=== PATIENT | female | born 1950 | race Caucasian/White ===

== ENCOUNTER 2018-01-21 16:27 | Emergency (ER) | payer OTHER ==
--- NOTE | 2018-01-21 16:47 | PDOC ---
History of Present Illness - General History Source: Patient, EMS Exam Limitations: Dementia - History of Present Illness Initial Comments: The patient is a 67 year old female with a significant past medical history of severe dementia, migraines,schizophrenia, major depressive disorder, HLD, HTN, hyperthyroidism, and chronic constipation who was brought in by EMS from [facility] for evaluation for refusal to eat 4 days. The patient is a poor historian. As per EMS, the patient has not been eating and being compliant with taking medicine. Allergies: NKA Past surgical history: No record. Social history: No reported cigarette, alcohol, or drug use. <Annemarie Rodriguez - Last Filed: 01/21/18 18:50> <Nini Beth - Last Filed: 01/22/18 01:51> - General Stated Complaint: AMS Time Seen by Provider: 01/21/18 16:39 Past History <Annemarie Rodriguez - Last Filed: 01/21/18 18:50> <Nini Beth - Last Filed: 01/22/18 01:51> - Past Medical History Allergies/Adverse Reactions: Allergies Allergy/AdvReac Type Severity Reaction Status Date / Time No Known Allergies Allergy Verified 01/21/18 16:52 Review of Systems - Review of Systems Able to Perform ROS?: No (Altered mental status.) Comments:: Limited due to altered mental status. <Annemarie Rodriguez - Last Filed: 01/21/18 18:50> *Physical Exam - Vital Signs Last Vital Signs Temp Pulse Resp BP Pulse Ox 100.1 F H 89 18 179/79 93 L 01/21/18 17:29 01/21/18 17:29 01/21/18 16:47 01/21/18 16:47 01/21/18 17:29 - Physical Exam Comments: GENERAL: Well developed, well nourished. Awake and alert. HEENT: (+)Dry mucous membranes. Normocephalic, atraumatic. PERRLA, EOMI. No conjunctival pallor. Sclera are non- icteric. Oropharynx is clear. NECK: Supple. Full ROM. No JVD. Carotid pulses 2+ and symmetric, without bruits. No thyromegaly. No lymphadenopathy. CARDIOVASCULAR: Regular rate and rhythm. No murmurs, rubs, or gallops. Distal pulses are 2+ and symmetric. PULMONARY: No evidence of respiratory distress. Lungs clear to auscultation bilaterally. No wheezing, rales or rhonchi. ABDOMINAL: Soft. Non-tender. Non-distended. No rebound or guarding. No organomegaly. Normoactive bowel sounds. MUSCULOSKELETAL Normal range of motion at all joints. No bony deformities or tenderness. No CVA tenderness. EXTREMITIES: No cyanosis. No clubbing. No edema. No calf tenderness. SKIN: Warm and very dry. Normal capillary refill. No rashes. No jaundice. NEUROLOGICAL: Alert, awake, appropriate. Cranial nerves 2-12 intact. No deficits to light touch and temperature in face, upper extremities and lower extremities. No motor deficits in the in face, upper extremities and lower extremities. Normoreflexic in the upper and lower extremities. PSYCHIATRIC: Cooperative. Good eye contact. Appropriate mood and affect. <Annemarie Rodriguez - Last Filed: 01/21/18 18:50> ED Treatment Course - LABORATORY CBC & Chemistry Diagram: 01/21/18 16:47 01/21/18 17:29 - ADDITIONAL ORDERS Additional order review: Laboratory Results 01/21/18 01/21/18 01/21/18 17:29 17:15 16:47 Sodium 144 Potassium 3.5 Chloride 112 H Carbon Dioxide 24 Anion Gap 8 BUN 12 Creatinine 0.5 L Creat Clearance w eGFR > 60 Random Glucose 90 Calcium 8.1 L Total Bilirubin 0.4 AST 20 ALT 25 Alkaline Phosphatase 110 Creatine Kinase 183 Creatine Kinase Index 0.5 CK-MB (CK-2) 1.031 Troponin I < 0.02 Total Protein 6.4 Albumin 2.5 L Urine Color Padmini Urine Appearance Turbid Urine pH 5.0 Ur Specific Parker 1.018 Urine Protein Negative Urine Glucose (UA) Negative Urine Ketones 1+ H Urine Blood 1+ H Urine Nitrite Negative Urine Bilirubin Negative Urine Urobilinogen 2.0 H Ur Leukocyte Esterase 2+ H Urine WBC (Auto) 24 Urine RBC (Auto) 13 Ur Epithelial Cells Many Urine Bacteria Many Urine Mucus Many Blood Type A POSITIVE Antibody Screen Negative 01/21/18 16:47 RBC 4.11 MCV 90.8 MCHC 35.0 RDW 13.6 MPV 8.2 Neutrophils % 70.2 Lymphocytes % 18.3 Monocytes % 9.7 Eosinophils % 0.9 Basophils % 0.9 - Medications Given in the ED: ED Medications Discontinued Medications Generic Name Dose Route Start Last Admin Trade Name Chito PRN Reason Stop Dose Admin Sodium Chloride 1,000 mls @ 1,000 mls/hr 01/21/18 16:52 01/21/18 17:28 Normal Saline - IV 01/21/18 17:51 1,000 mls/hr ASDIR STA Administration <Annemarie Rodriguez - Last Filed: 01/21/18 18:50> - LABORATORY CBC & Chemistry Diagram: 01/21/18 16:47 01/21/18 17:29 <Nini Beth - Last Filed: 01/22/18 01:51> Medical Decision Making - Medical Decision Making 01/22/18 01:48 67-year-old female brought in from the assisted for failure to thrive. The assisted notes states that the patient has refused to eat or take her medications for the past 4 days Past medical history significant for dementia, schizophrenia, chronic constipation. The patient was afebrile. CT of the head did not show any acute intracranial pathology UA showed some WBCs, but no significant number Clinically, the patient had a vaginal yeast infection and was given Diflucan CBC unremarkable. EKG does not show any ischemia I spoke with the nurse Fatmata on the second floor at [facility] and told her that the patient wouldn't need Monistat vaginal suppositories for week and also should be put on Levaquin for a short time for UTI. Patient is not febrile. Patient does not have any elevated white count will be discharged back to her facility with instructions to continue her medications for her vaginal candidiasis and UTI <Nini Beth - Last Filed: 01/22/18 01:51> *DC/Admit/Observation/Transfer - Attestations Scribe Attestion: Documentation prepared by Annemarie Rodriguez, acting as registered medical transcriptionist for Nini Beth MD. <Annemarie Rodriguez - Last Filed: 01/21/18 18:50> <Nini Beth - Last Filed: 01/22/18 01:51> Diagnosis at time of Disposition: Vagina, candidiasis UTI (urinary tract infection) Qualifiers: Urinary tract infection type: site unspecified Hematuria presence: without hematuria Qualified Code(s): N39.0 - Urinary tract infection, site not specified - Discharge Dispostion Disposition: HOME Condition at time of disposition: Stable - Referrals Referrals: Michaelle Lyons MD [Primary Care Provider] - - Patient Instructions Printed Discharge Instructions: DI for Vaginal Yeast Infection, DI for Urinary Tract Infection (UTI) Additional Instructions: This patient needs one week of MONISTAT VAGINAL SUPPOSITORY for her yeast infection Please give LEVAQUIN 750 mg daily for UTI for one week
[2018-01-21] MEDS ORDERED: SODIUM CHLORIDE 1,000 ML IV STA (16:52)
[2018-01-21 17:10] LABS: BASO % 0.9 % (0-2.0); EOS % 0.9 % (0-4.5); HEMATOCRIT 37.3 % (32.4-45.2); HEMOGLOBIN 13.1 GM/dL (10.7-15.3); LYMPH % 18.3 % (8-40); MCH 31.8 pg (25.7-33.7); MEAN CELL VOLUME 90.8 fl (80-96); MEAN PLT VOLUME 8.2 fl (7.5-11.1); MONO % 9.7 % (3.8-10.2); NEUT % 70.2 % (42.8-82.8); PLATELET COUNT 222 K/MM3 (134-434); RBC 4.11 M/mm3 (3.60-5.2); RDW 13.6 % (11.6-15.6); WHITE BLOOD COUNT 7.3 K/mm3 (4.0-10.0)
[2018-01-21 17:13] VITALS: BP 179/79; BMI 40.5
[2018-01-21 17:29] VITALS: PULSE 89; TEMP 100.1
[2018-01-21 17:33] LABS: URINE APPEARANCE TURBID; URINE BILIRUBIN NEGATIVE (<2.0 mg/dL); URINE BLOOD 1+ (NEGATIVE); URINE COLOR AMBER; URINE GLUCOSE (UA) NEGATIVE (NEGATIVE); URINE KETONE 1+ (NEGATIVE); URINE NITRITE NEGATIVE (NEGATIVE); URINE PROTEIN NEGATIVE (NEGATIVE)
[2018-01-21 17:36] LABS: URINE LEUK ESTERASE 2+ (NEGATIVE)
[2018-01-21 17:41] LABS: EPI CELLS MANY /HPF (FEW); URINE BACTERIA MANY /hpf (NONE SEEN); URINE MUCUS MANY
[2018-01-21 18:01] LABS: ALBUMIN 2.5 g/dl (3.4-5.0); ANION GAP 8 (8-16); BILIRUBIN,TOTAL 0.4 mg/dL (0.2-1.0); BLOOD UREA NITROGEN 12 mg/dL (7-18); CALCIUM 8.1 mg/dL (8.5-10.1); CHLORIDE 112 mmol/L (98-107); CO2 24 mmol/L (21-32); CREATININE 0.5 mg/dL (0.55-1.02); GLUCOSE,RANDOM 90 mg/dL (74-106); POTASSIUM 3.5 mmol/L (3.5-5.1); SGOT/AST 20 U/L (15-37); SGPT/ALT 25 U/L (12-78); SODIUM 144 mmol/L (136-145); TOT PROT 6.4 g/dl (6.4-8.2)
[2018-01-21 18:04] LABS: ALK PHOS 110 U/L (45-117)
[2018-01-21] MEDS ORDERED: FLUCONAZOLE 100 MG TABLET (UD) PO ONE (18:52)
[2018-01-21 18:54] LABS: INR 1.75 (0.82-1.09); PROTHROMBIN TIME (PATIENT) 19.8 SEC (9.98-11.88)
== END 2018-01-21 22:54 | disposition home or self-care (01) ==
LOC: JER 16:27
PROC: 3E0337Z Introduction of Electrolytic and Water Balance Substance into Peripheral Vein, Percutaneous Approach (ICD-10-PCS; principal; 2018-01-21)
PROC: 3E03329 Introduction of Other Anti-infective into Peripheral Vein, Percutaneous Approach (ICD-10-PCS; 2018-01-21)
DX: N39.0 Urinary tract infection, site not specified (principal); B37.3 Candidiasis of vulva and vagina; F03.90 Unspecified dementia, unspecified severity, without behavioral disturbance, psychotic disturbance, mood disturbance, and anxiety; F20.9 Schizophrenia, unspecified; F32.9 Major depressive disorder, single episode, unspecified; G43.909 Migraine, unspecified, not intractable, without status migrainosus; I10 Essential (primary) hypertension; E78.00 Pure hypercholesterolemia, unspecified; E03.9 Hypothyroidism, unspecified; K59.09 Other constipation
CPT/HCPCS: 36415; 70450-TC; 71045-TC-FY; 80053; 81003; 81015; 82550; 82553; 84484; 85025; 85610; 86850; 86900; 86901; 87086; 96361; 96365; 99284-25; J7030

== ENCOUNTER 2018-01-31 09:23 | Inpatient (IN) | payer OTHER ==
--- NOTE | 2018-01-31 10:12 | PDOC ---
Attending Attestation - Resident Resident Name: Kaye Waters - ED Attending Attestation I have performed the following: I have examined & evaluated the patient, The case was reviewed & discussed with the resident, I agree w/resident's findings & plan, Exceptions are as noted - HPI HPI: 01/31/18 10:10 67 year old female with medical history of schizophrenia, migraine, constipation , depression, HLD, dementia, anxiety, bipolar disorder, HLD, hypothyroidism sent in for PEG evaluation. Since 01/18, the patient has not had an appetite and does not wish to eat. She denies any pain, fevers, chills, vomiting, diarrhea. However, pt's history is somewhat limited as she is AAOx2 with dementia. The patient cannot explain why she is not having an appetite. And is unsure why she is in the hospital. - Physicial Exam PE: 01/31/18 10:17 GENERAL: Awake, alert, and oriented x 2 (to self and to birthdate), in no acute distress. HEAD: No signs of trauma EYES: PERRLA, EOMI, sclera anicteric, conjunctiva clear ENT: Auricles normal inspection, hearing grossly normal, nares patent, NECK: Normal ROM, supple LUNGS: Breath sounds equal, clear to auscultation bilaterally. No wheezes, and no crackles HEART: Regular rate and rhythm, normal S1 and S2, no murmurs, rubs or gallops ABDOMEN: Soft, nontender. No guarding, no rebound. No masses EXTREMITIES: Normal range of motion, no edema. No clubbing or cyanosis. No cords, erythema, or tenderness NEUROLOGICAL: Cranial nerves II through XII grossly intact. SKIN: Warm, Dry, normal turgor, no rashes or lesions noted. - Medical Decision Making 01/31/18 11:07 Vital Signs Temp Pulse Resp BP Pulse Ox 98.2 F 76 20 135/67 97 01/31/18 09:32 01/31/18 09:32 01/31/18 09:32 01/31/18 09:32 01/31/18 09:32 Patient is presenting for evaluation for PEG placement. We'll obtain blood work , preoperative blood work, and admit the patient to the hospital for further evaluation. Heart Score/ECG Review #1 ECG reviewed & interpreted by me at: 09:50 01/31/18 10:19 NSR 59, no sunday/std, normal axis, normal intervals, QTC 429 msec
--- NOTE | 2018-01-31 10:36 | PDOC ---
History of Present Illness - General Chief Complaint: Loss of Appetite Stated Complaint: G TUBE REPLACEMENT Time Seen by Provider: 01/31/18 09:33 History Source: Longterm Records Exam Limitations: Other (psychiatric illness) - History of Present Illness Initial Comments: This is a 67 YOF with h/o paranoid schizophrenia, bipolar disorder, anxiety, major depressive disorder, UTI, PNA, hypothyroidism, migraines, and constipation who is BIBA from [facility] for failure to thrive and for PEG tube placement evaluation. The patient began refusing to eat on 01/18/18 and has been receiving IV fluids since that time. The patient herself is alert and oriented only to her own name and date, does not know why she is here in the hospital, and is unable to provide any of her symptomology or medical history. She is a DNR/DNI patient with [facility] allowing for trial period of feeding tube, trial period of IV fluids, and use of antibiotics. Past History - Past Medical History Allergies/Adverse Reactions: Allergies Allergy/AdvReac Type Severity Reaction Status Date / Time No Known Allergies Allergy Verified 01/31/18 09:32 Home Medications: Ambulatory Orders Acetaminophen [Tylenol] 650 mg PO QID PRN 01/31/18 Albuterol 0.083% Nebulizer Janet [Ventolin 0.083% Nebulizer Soln -] 2.5 mg IN QID 01/31/18 Aspirin [ASA -] 81 mg PO DAILY 01/31/18 Divalproex *ER* [Depakote *ER* -] 1,000 mg PO HS 01/31/18 Divalproex *ER* [Depakote *ER* -] 500 mg PO DAILY 01/31/18 Divalproex [Depakote -] 125 mg PO DAILY 01/31/18 Docusate Sodium [Colace] 200 mg PO HS 01/31/18 Gabapentin [Gralise] 600 mg PO BID 01/31/18 Haloperidol [Haldol -] 5 mg PO BID 01/31/18 Haloperidol [Haldol -] 10 mg PO HS 01/31/18 Levothyroxine [Synthroid -] 50 mcg PO DAILY 01/31/18 Magnesium Hydrox 2400MG/30Ml [Milk of Magnesia -] 30 ml PO Q8H PRN 01/31/18 Multivitamin with Iron [Animal Shapes Plus Iron] 1 each PO DAILY 01/31/18 Polyethylene Glycol 3350 [Clearlax] 17 gm PO DAILY 01/31/18 Quetiapine Fumarate [Seroquel -] 200 mg PO BID 01/31/18 Quetiapine Fumarate [Seroquel -] 200 mg PO HS 01/31/18 Sennosides [Senna] 8.6 mg PO HS PRN 01/31/18 Simvastatin 10 mg PO HS 01/31/18 Sodium Phosphate/Na Biphos [Fleet Adult Rectal Enema -] 133 ml RC DAILY PRN Trazodone HCl 100 mg PO HS 01/31/18 clonazePAM [Klonopin -] 0.5 mg PO DAILY 01/31/18 Apixaban [Eliquis -] 10 mg PO BID #14 tablet 02/05/18 Apixaban [Eliquis] 5 mg PO BID #60 tablet 02/05/18 COPD: No HTN: Yes Psychiatric Problems: Yes (schiophrenia bipolar) - Suicide/Smoking/Psychosocial Hx Smoking History: Never smoked Have you smoked in the past 12 months: No Information on smoking cessation initiated: No Hx Alcohol Use: No Drug/Substance Use Hx: No Substance Use Type: None Review of Systems - Review of Systems Able to Perform ROS?: No (A/O x2) *Physical Exam - Vital Signs Last Vital Signs Temp Pulse Resp BP Pulse Ox 98.2 F 76 20 135/67 97 01/31/18 09:32 01/31/18 09:32 01/31/18 09:32 01/31/18 09:32 01/31/18 09:32 - Physical Exam General Appearance: Yes: Nourished, Appropriately Dressed, Obese, Other (alert but oriented only to own name and date, appears confused but not agitated) . No: Apparent Distress HEENT: positive: EOMI, GAUDENCIO, Normal ENT Inspection, Normal Voice, Hearing Grossly Normal. negative: Scleral Icterus (R), Scleral Icterus (L), Nasal Congestion Neck: positive: Trachea midline, Supple. negative: Tender, Rigid Respiratory/Chest: positive: Lungs Clear, Normal Breath Sounds. negative: Respiratory Distress, Crackles, Rhonchi, Stridor, Wheezing Cardiovascular: positive: Regular Rhythm, Regular Rate, S1, S2. negative: Edema , JVD, Murmur Gastrointestinal/Abdominal: positive: Normal Bowel Sounds, Soft, Other (obese). negative: Tender, Organomegaly, Pulsatile Mass, Guarding Musculoskeletal: positive: Normal Inspection. negative: Decreased Range of Motion, Vertebral Tenderness Extremity: positive: Normal Capillary Refill, Normal Inspection, Normal Range of Motion. negative: Tender, Cyanosis Integumentary: positive: Normal Color, Dry, Warm. negative: Erythema, Rash, Bruising Neurologic: positive: strand galvanizer II-XII NML intact (grossly), Alert, Normal Mood/Affect , Normal Response, Motor Strength 5/5, Confused, Disoriented. negative: Fully Oriented, EOM Palsy, Facial Droop, Numbness, Sensory Deficit Heart Score/ECG Review #1 ECG reviewed & interpreted by me at: 10:40 01/31/18 10:40 Sinus bradycardia, rate of 59, T-wave flattening in I, T-wave inversion in aVL, otherwise normal EKG ED Treatment Course - LABORATORY CBC & Chemistry Diagram: 02/04/18 09:10 02/03/18 08:20 - RADIOLOGY Radiology Studies Ordered: Category Date Time Status CHEST X-RAY PORTABLE* [RAD] Stat Radiology 01/31/18 09:58 Ordered Medical Decision Making - Medical Decision Making Adult patient p/w failure to thrive for PEG tube placement evaluation. Initial Vital Signs Temp Pulse Resp BP Pulse Ox 98.2 F 76 20 135/67 97 01/31/18 09:32 01/31/18 09:32 01/31/18 09:32 01/31/18 09:32 01/31/18 09:32 Exam: obese, confused, a/o x2, normal heart and lung exams, no edema, no tenderness to abdomen, PIV right AC. DDX IBNLT: anemia, toxic-metabolic (e.g. medications, drugs, electrolytes, thyroid), structural (e.g. epilepsy, CVA/TIA, ACS, PE), infectious (e.g. UTI, PNA, bronchitis, cellulitis, meningitis), VS abnormalities (e.g. fever), psychiatric (e.g. delirium, dementia, psychosis), etc. W/U ordered: CBCD CMP Mg Phos Troponin CK CKMB TSH UA UCx EKG CXR TX ordered: None EKG: Sinus bradycardia, rate of 59, T-wave flattening in I, T-wave inversion in aVL, otherwise normal EKG. CXR: NADP Laboratory Tests 01/31/18 01/31/18 01/31/18 10:35 10:35 10:35 WBC 7.6 RBC 4.51 Hgb 14.1 Hct 40.3 MCV 89.2 MCH 31.2 MCHC 35.0 RDW 13.2 Plt Count 192 MPV 8.8 Neutrophils % 67.2 Lymphocytes % 19.1 Monocytes % 11.3 H Eosinophils % 1.2 Basophils % 1.2 PT with INR 12.10 INR 1.07 D PTT (Actin FS) 33.5 Sodium 141 Potassium 3.1 L Chloride 107 Carbon Dioxide 26 Anion Gap 8 BUN 10 Creatinine 0.6 Creat Clearance w eGFR > 60 Random Glucose 100 Calcium 8.9 Total Bilirubin 0.7 D AST 21 ALT 33 Alkaline Phosphatase 150 H Total Protein 6.5 Albumin 2.8 L Patient to be admitted given failure to thrive and need for PEG tube placement eval. They are unsafe for discharge at this time. They require further hospital observation, workup, and treatment. Spoke with Karma Loving, patient admitted to [facility]/Surg obs. Dr. Loving requests Dr. Colvin; consult placed. Decision to Admit order placed. *DC/Admit/Observation/Transfer Diagnosis at time of Disposition: Failure to thrive Qualifiers: Failure to thrive age range: in adult Qualified Code(s): R62.7 - Adult failure to thrive - Discharge Dispostion Condition at time of disposition: Improved Decision to Admit order: Yes - Prescriptions - Referrals - Patient Instructions - Post Discharge Activity
[2018-01-31 10:46] LABS: BASO % 1.2 % (0-2.0); EOS % 1.2 % (0-4.5); HEMATOCRIT 40.3 % (32.4-45.2); HEMOGLOBIN 14.1 GM/dL (10.7-15.3); LYMPH % 19.1 % (8-40); MCH 31.2 pg (25.7-33.7); MEAN CELL VOLUME 89.2 fl (80-96); MEAN PLT VOLUME 8.8 fl (7.5-11.1); MONO % 11.3 % (3.8-10.2); NEUT % 67.2 % (42.8-82.8); PLATELET COUNT 192 K/MM3 (134-434); RBC 4.51 M/mm3 (3.60-5.2); RDW 13.2 % (11.6-15.6); WHITE BLOOD COUNT 7.6 K/mm3 (4.0-10.0)
[2018-01-31 10:58] LABS: INR 1.07 (0.82-1.09); PROTHROMBIN TIME (PATIENT) 12.1 SEC (9.7-13.0)
[2018-01-31 11:01] LABS: ACTIVATED PTT 33.5 SECONDS (26.9-34.4)
[2018-01-31 11:15] LABS: ALBUMIN 2.8 g/dl (3.4-5.0); ALK PHOS 150 U/L (45-117); ANION GAP 8 (8-16); BILIRUBIN,TOTAL 0.7 mg/dL (0.2-1.0); BLOOD UREA NITROGEN 10 mg/dL (7-18); CALCIUM 8.9 mg/dL (8.5-10.1); CHLORIDE 107 mmol/L (98-107); CO2 26 mmol/L (21-32); CREATININE 0.6 mg/dL (0.55-1.02); GLUCOSE,RANDOM 100 mg/dL (74-106); POTASSIUM 3.1 mmol/L (3.5-5.1); SGOT/AST 21 U/L (15-37); SGPT/ALT 33 U/L (12-78); SODIUM 141 mmol/L (136-145); TOT PROT 6.5 g/dl (6.4-8.2)
--- NOTE | 2018-01-31 12:48 | CON.GI ---
Consult Consult Specialty:: GI Reason for Consultation:: failure to thrive - History of Present Illness History of Present Illness: as per initial intake: This is a 67 YOF with h/o paranoid schizophrenia, bipolar disorder, anxiety, major depressive disorder, UTI, PNA, hypothyroidism, migraines, and constipation who is BIBA from [facility] for failure to thrive and for PEG tube placement evaluation. The patient began refusing to eat on 01/18/18 and has been receiving IV fluids since that time. The patient herself is alert and oriented only to her own name and date, does not know why she is here in the hospital, and is unable to provide any of her symptomology or medical history. She is a DNR/DNI patient with [facility] allowing for trial period of feeding tube, trial period of IV fluids, and use of antibiotics. - History Source History Provided By: Medical Record, Caregiver - Alcohol/Substance Use Hx Alcohol Use: No - Smoking History Smoking history: Never smoked Have you smoked in the past 12 months: No Home Medications - Allergies Allergies/Adverse Reactions: Allergies Allergy/AdvReac Type Severity Reaction Status Date / Time No Known Allergies Allergy Verified 01/31/18 09:32 - Home Medications Home Medications: Ambulatory Orders Acetaminophen [Tylenol] 650 mg PO QID PRN 01/31/18 Albuterol 0.083% Nebulizer Janet [Ventolin 0.083% Nebulizer Soln -] 2.5 mg IN QID 01/31/18 Aspirin [ASA -] 81 mg PO DAILY 01/31/18 Divalproex *ER* [Depakote *ER* -] 1,000 mg PO HS 01/31/18 Divalproex *ER* [Depakote *ER* -] 500 mg PO DAILY 01/31/18 Divalproex [Depakote -] 125 mg PO DAILY 01/31/18 Docusate Sodium [Colace] 200 mg PO HS 01/31/18 Gabapentin [Gralise] 600 mg PO BID 01/31/18 Haloperidol [Haldol -] 5 mg PO BID 01/31/18 Haloperidol [Haldol -] 10 mg PO HS 01/31/18 Levothyroxine [Synthroid -] 50 mcg PO DAILY 01/31/18 Magnesium Hydrox 2400MG/30Ml [Milk of Magnesia -] 30 ml PO Q8H PRN 01/31/18 Multivitamin with Iron [Animal Shapes Plus Iron] 1 each PO DAILY 01/31/18 Polyethylene Glycol 3350 [Clearlax] 17 gm PO DAILY 01/31/18 Quetiapine Fumarate [Seroquel -] 200 mg PO BID 01/31/18 Quetiapine Fumarate [Seroquel -] 200 mg PO HS 01/31/18 Sennosides [Senna] 8.6 mg PO HS PRN 01/31/18 Simvastatin 10 mg PO HS 01/31/18 Sodium Phosphate/Na Biphos [Fleet Adult Rectal Enema -] 133 ml RC DAILY PRN Trazodone HCl 100 mg PO HS 01/31/18 clonazePAM [Klonopin -] 0.5 mg PO DAILY 01/31/18 Family Disease History - Family Disease History Family History: Unable to Obtain Physical Exam-GI Vital Signs: Vital Signs Temperature 98.2 F 01/31/18 09:32 Pulse Rate 63 01/31/18 12:36 Respiratory Rate 18 01/31/18 12:36 Blood Pressure 131/68 01/31/18 12:36 O2 Sat by Pulse Oximetry (%) 97 01/31/18 12:36 Constitutional: Yes: Well Nourished, No Distress, Calm Eyes: Yes: Conjunctiva Clear HENT: Yes: Atraumatic Neck: Yes: Supple Cardiovascular: Yes: Regular Rate and Rhythm. No: Bradycardia, Tachycardia Respiratory: Yes: Regular Gastrointestinal Inspection: No: Ascites, Distention ...Auscultate: Yes: Normoactive Bowel Sounds ...Palpate: No: Firm/Rigid, Guarding, Tenderness Neurological: Yes: Alert Labs: CBC, BMP 01/31/18 10:35 01/31/18 10:35 INR, PTT INR 1.07 (0.82-1.09) D 01/31/18 10:35 Laboratory Last Values WBC 7.6 K/mm3 (4.0-10.0) 01/31/18 10:35 RBC 4.51 M/mm3 (3.60-5.2) 01/31/18 10:35 Hgb 14.1 GM/dL (10.7-15.3) 01/31/18 10:35 Hct 40.3 % (32.4-45.2) 01/31/18 10:35 MCV 89.2 fl (80-96) 01/31/18 10:35 MCH 31.2 pg (25.7-33.7) 01/31/18 10:35 MCHC 35.0 g/dl (32.0-36.0) 01/31/18 10:35 RDW 13.2 % (11.6-15.6) 01/31/18 10:35 Plt Count 192 K/MM3 (134-434) 01/31/18 10:35 MPV 8.8 fl (7.5-11.1) 01/31/18 10:35 Neutrophils % 67.2 % (42.8-82.8) 01/31/18 10:35 Lymphocytes % 19.1 % (8-40) 01/31/18 10:35 Monocytes % 11.3 % (3.8-10.2) H 01/31/18 10:35 Eosinophils % 1.2 % (0-4.5) 01/31/18 10:35 Basophils % 1.2 % (0-2.0) 01/31/18 10:35 PT with INR 12.10 SEC (9.7-13.0) 01/31/18 10:35 INR 1.07 (0.82-1.09) D 01/31/18 10:35 PTT (Actin FS) 33.5 SECONDS (26.9-34.4) 01/31/18 10:35 Sodium 141 mmol/L (136-145) 01/31/18 10:35 Potassium 3.1 mmol/L (3.5-5.1) L 01/31/18 10:35 Chloride 107 mmol/L (98-107) 01/31/18 10:35 Carbon Dioxide 26 mmol/L (21-32) 01/31/18 10:35 Anion Gap 8 (8-16) 01/31/18 10:35 BUN 10 mg/dL (7-18) 01/31/18 10:35 Creatinine 0.6 mg/dL (0.55-1.02) 01/31/18 10:35 Creat Clearance w eGFR > 60 (>60) 01/31/18 10:35 Random Glucose 100 mg/dL (74-106) 01/31/18 10:35 Calcium 8.9 mg/dL (8.5-10.1) 01/31/18 10:35 Total Bilirubin 0.7 mg/dL (0.2-1.0) D 01/31/18 10:35 AST 21 U/L (15-37) 01/31/18 10:35 ALT 33 U/L (12-78) 01/31/18 10:35 Alkaline Phosphatase 150 U/L (45-117) H 01/31/18 10:35 Total Protein 6.5 g/dl (6.4-8.2) 01/31/18 10:35 Albumin 2.8 g/dl (3.4-5.0) L 01/31/18 10:35 TSH 1.26 uIU/ml (0.358-3.74) 01/31/18 10:35 Blood Type A POSITIVE 01/31/18 10:35 Antibody Screen Negative 01/31/18 10:35 Problem List - Problems (1) Failure to thrive Code(s): [id number] - Qualifiers: Failure to thrive age range: in adult Qualified Code(s): R62.7 - Adult failure to thrive Assessment/Plan A 67-year-old female with failure to thrive due to Clinical condition. Plan PEG early next week, or as clinical condition allows. Discussed with pt's sister on the phone. Consent in chart
[2018-01-31] MEDS: D5-1/2NS+20 MEQ KCL - 20 MEQ/1,000 ML INFUS.BAG IV SCH (18:44)
[2018-01-31 19:47] VITALS: BMI 32.5
--- NOTE | 2018-01-31 19:54 | HP ---
Admitting History and Physical - Primary Care Physician PCP: Michaelle Lyons - Admission History of Present Illness: This is a 67 YOF with h/o paranoid schizophrenia, bipolar disorder, anxiety, major depressive disorder, UTI, PNA, hypothyroidism, migraines, and constipation who is BIBA from [facility] for failure to thrive and for PEG tube placement evaluation. The patient began refusing to eat on 01/18/18 and has been receiving IV fluids since that time. The patient herself is alert and oriented only to her own name and date, does not know why she is here in the hospital, and is unable to provide any of her symptomology or medical history. She is a DNR/DNI patient with [facility] allowing for trial period of feeding tube, trial period of IV fluids, and use of antibiotics. pt seen/ examined. chart reviwed for peg placement History Source: Medical Record Limitations to Obtaining History: Clinical Condition - Past Medical History ...: No - Advance Directives Advance Directives: Yes: DNR, [facility] - Smoking History Smoking history: Never smoked Have you smoked in the past 12 months: No - Alcohol/Substance Use Hx Alcohol Use: No Home Medications - Allergies Allergies/Adverse Reactions: Allergies Allergy/AdvReac Type Severity Reaction Status Date / Time No Known Allergies Allergy Verified 01/31/18 09:32 - Home Medications Home Medications: Ambulatory Orders Acetaminophen [Tylenol] 650 mg PO QID PRN 01/31/18 Albuterol 0.083% Nebulizer Janet [Ventolin 0.083% Nebulizer Soln -] 2.5 mg IN QID 01/31/18 Aspirin [ASA -] 81 mg PO DAILY 01/31/18 Divalproex *ER* [Depakote *ER* -] 1,000 mg PO HS 01/31/18 Divalproex *ER* [Depakote *ER* -] 500 mg PO DAILY 01/31/18 Divalproex [Depakote -] 125 mg PO DAILY 01/31/18 Docusate Sodium [Colace] 200 mg PO HS 01/31/18 Gabapentin [Gralise] 600 mg PO BID 01/31/18 Haloperidol [Haldol -] 5 mg PO BID 01/31/18 Haloperidol [Haldol -] 10 mg PO HS 01/31/18 Levothyroxine [Synthroid -] 50 mcg PO DAILY 01/31/18 Magnesium Hydrox 2400MG/30Ml [Milk of Magnesia -] 30 ml PO Q8H PRN 01/31/18 Multivitamin with Iron [Animal Shapes Plus Iron] 1 each PO DAILY 01/31/18 Polyethylene Glycol 3350 [Clearlax] 17 gm PO DAILY 01/31/18 Quetiapine Fumarate [Seroquel -] 200 mg PO BID 01/31/18 Quetiapine Fumarate [Seroquel -] 200 mg PO HS 01/31/18 Sennosides [Senna] 8.6 mg PO HS PRN 01/31/18 Simvastatin 10 mg PO HS 01/31/18 Sodium Phosphate/Na Biphos [Fleet Adult Rectal Enema -] 133 ml RC DAILY PRN Trazodone HCl 100 mg PO HS 01/31/18 clonazePAM [Klonopin -] 0.5 mg PO DAILY 01/31/18 Review of Systems Unable to obtain ROS, reason: poor historian Physical Examination Vital Signs: Vital Signs Temperature 98.3 F 01/31/18 17:00 Pulse Rate 65 01/31/18 17:00 Respiratory Rate 19 01/31/18 17:00 Blood Pressure 134/66 01/31/18 17:00 O2 Sat by Pulse Oximetry (%) 97 01/31/18 17:00 Constitutional: Yes: No Distress, Calm Eyes: Yes: Conjunctiva Clear Neck: Yes: Supple Cardiovascular: Yes: Regular Rate and Rhythm Respiratory: Yes: CTA Bilaterally Gastrointestinal: Yes: Soft Edema: Yes Edema: RUE: 2+ Neurological: No: Alert (awake) Labs: CBC, BMP 01/31/18 10:35 01/31/18 10:35 Imaging - Results Chest X-ray: Report Reviewed EKG: Report Reviewed Problem List - Problems (1) Schizophrenia Code(s): F20.9 - SCHIZOPHRENIA, UNSPECIFIED (2) Swelling of upper arm Code(s): M79.89 - OTHER SPECIFIED SOFT TISSUE DISORDERS (3) Failure to thrive Code(s): [id number] - Qualifiers: Failure to thrive age range: in adult Qualified Code(s): R62.7 - Adult failure to thrive Assessment/Plan stable u/s - r/o dvt meds reviewed gi consult will follow
[2018-02-01] MEDS: D5-1/2NS+20 MEQ KCL - 20 MEQ/1,000 ML INFUS.BAG IV SCH ×4 (06:17→18:14)
--- NOTE | 2018-02-01 09:12 | PN ---
Progress Note (short form) - Note Progress Note: comfortable not taking orally calm, Vital Signs Temp 97.4 F L 02/01/18 06:40 Pulse 65 02/01/18 06:40 Resp 18 02/01/18 06:40 BP 141/77 02/01/18 06:40 Pulse Ox 97 01/31/18 21:00 Intake & Output 01/31/18 01/31/18 02/01/18 11:59 23:59 11:59 Intake Total 41.5 996 Output Total 1 2 Balance 40.5 994 Weight 200 lb 214 lb 6.4 oz Intake: IV 41.5 996 D5-1/2NS+20 MEQ KCL - 20 41.5 996 meq In 1,000 ml @ 83 mls/ hr IV ASDIR LUIZ Rx#: [id number] Output: Urine 1 2 Void 1 2 Other: Voiding Method Diaper Incontinent Bowel Movement No Height 5 ft 8 in 5 ft 8 in Body Mass Index (BMI) 30.4 32.5 Weight Measurement Method Patient Lift Scale Weight Measurement Method Est/Stated by Patient Active Medications Potassium Chloride/Dextrose/Sod Cl (D5-1/2ns+20 Meq Kcl -) 20 meq in 1,000 mls @ 83 mls/hr IV ASDIR LUIZ Last Admin: 02/01/18 06:17 Dose: 83 mls/hr Physical Examination Constitutional: Yes: No Distress, Calm Eyes: Yes: Conjunctiva Clear Neck: Yes: Supple Cardiovascular: Yes: Regular Rate and Rhythm Respiratory: Yes: CTA Bilaterally Gastrointestinal: Yes: Soft Edema: Yes Edema: RUE: 2+ Neurological: No: Alert (awake) Imaging - Results Chest X-ray: Report Reviewed EKG: Report Reviewed Assessment/Plan stable u/s - r/o dvt--poor study - pt not cooperative meds reviewed gi consult noted-- peg planned continue present care will follow
[2018-02-01 09:24] LABS: ALBUMIN 2.4 g/dl (3.4-5.0); ANION GAP 4 (8-16); BILIRUBIN,TOTAL 0.6 mg/dL (0.2-1.0); BLOOD UREA NITROGEN 7 mg/dL (7-18); CALCIUM 7.6 mg/dL (8.5-10.1); CHLORIDE 108 mmol/L (98-107); CO2 28 mmol/L (21-32); CREATININE 0.4 mg/dL (0.55-1.02); GLUCOSE,RANDOM 111 mg/dL (74-106); SGOT/AST 14 U/L (15-37); SGPT/ALT 25 U/L (12-78); SODIUM 140 mmol/L (136-145); TOT PROT 5.7 g/dl (6.4-8.2)
[2018-02-01 09:25] LABS: ALK PHOS 134 U/L (45-117)
[2018-02-01 10:48] LABS: BASO % 0.4 % (0-2.0); EOS % 1.9 % (0-4.5); HEMATOCRIT 34.1 % (32.4-45.2); HEMOGLOBIN 12.2 GM/dL (10.7-15.3); LYMPH % 22.5 % (8-40); MCH 31.5 pg (25.7-33.7); MCHC 35.9 g/dl (32.0-36.0); MEAN CELL VOLUME 87.9 fl (80-96); MEAN PLT VOLUME 9.2 fl (7.5-11.1); MONO % 8.1 % (3.8-10.2); NEUT % 67.1 % (42.8-82.8); PLATELET COUNT 191 K/MM3 (134-434); RBC 3.88 M/mm3 (3.60-5.2); RDW 13.1 % (11.6-15.6)
--- NOTE | 2018-02-01 11:33 | EKG ---
Test Reason : Blood Pressure : / mmHG Vent. Rate : 059 BPM Atrial Rate : 059 BPM P-R Int : 192 ms QRS Dur : 090 ms QT Int : 434 ms P-R-T Axes : 024 037 083 degrees QTc Int : 429 ms SINUS BRADYCARDIA OTHERWISE NORMAL ECG NO PREVIOUS ECGS AVAILABLE Confirmed by CHANTAL CARMONA MD ([id number]) on 02/01/2018 11:33:13 AM Referred By: Confirmed By:CHANTAL CARMONA MD
[2018-02-01 16:02] LABS: URINE APPEARANCE CLOUDY; URINE BILIRUBIN NEGATIVE (<2.0 mg/dL); URINE COLOR YELLOW; URINE GLUCOSE (UA) NEGATIVE (NEGATIVE); URINE KETONE NEGATIVE (NEGATIVE); URINE NITRITE NEGATIVE (NEGATIVE)
[2018-02-01 16:39] LABS: URINE LEUK ESTERASE 3+ (NEGATIVE); URINE PROTEIN 2+ (NEGATIVE)
[2018-02-01 16:40] LABS: EPI CELLS MANY /HPF (FEW); URINE BACTERIA RARE /hpf (NONE SEEN); URINE HYALINE CAST 4 /lpf; URINE MUCUS RARE
[2018-02-02] MEDS: D5-1/2NS+20 MEQ KCL - 20 MEQ/1,000 ML INFUS.BAG IV SCH ×3 (06:12→18:22)
[2018-02-02] MEDS: HEPARIN NA (PORCINE) 5,000 UNITS/ML 1ML VIAL SQ SCH ×2 (11:59→21:05)
--- NOTE | 2018-02-02 14:03 | PN ---
Progress Note (short form) - Note Progress Note: comfortable calm, family at bedside denies pain. Vital Signs Temp 98.2 F 02/02/18 13:55 Pulse 64 02/02/18 13:42 Resp 19 02/02/18 13:42 BP 134/70 02/02/18 13:42 Pulse Ox 98 02/01/18 21:00 Intake & Output 02/01/18 02/02/18 02/02/18 23:59 11:59 23:59 Intake Total 996 996 Output Total 6 3 Balance 990 993 Weight 214 lb Intake: IV 996 996 D5-1/2NS+20 MEQ KCL - 20 996 996 meq In 1,000 ml @ 83 mls/ hr IV ASDIR LUIZ Rx#: [id number] Oral 0 Output: Urine 6 3 Void 6 3 Other: Voiding Method Incontinent Incontinent Bowel Movement No No Height 5 ft 8 in Active Medications Heparin Sodium (Porcine) (Heparin -) 5,000 unit SQ BID [facility] Last Admin: 02/02/18 11:59 Dose: 5,000 unit Potassium Chloride/Dextrose/Sod Cl (D5-1/2ns+20 Meq Kcl -) 20 meq in 1,000 mls @ 83 mls/hr IV ASDIR LUIZ Last Admin: 02/02/18 13:50 Dose: Not Given Physical Examination Constitutional: Yes: No Distress, Calm Eyes: Yes: Conjunctiva Clear Neck: Yes: Supple Cardiovascular: Yes: Regular Rate and Rhythm Respiratory: Yes: CTA Bilaterally Gastrointestinal: Yes: Soft Edema: Yes Edema: RUE: 2+ Neurological: No: Alert (awake). Imaging - Results Chest X-ray: Report Reviewed EKG: Report Reviewed Assessment/Plan stable peg planned continue present care dvt prophylaxis discussed with pts family. will follow
[2018-02-03 08:32] LABS: HEMATOCRIT 35.9 % (32.4-45.2); HEMOGLOBIN 12.8 GM/dL (10.7-15.3); MCH 31.4 pg (25.7-33.7); MCHC 35.6 g/dl (32.0-36.0); MEAN CELL VOLUME 88.1 fl (80-96); MEAN PLT VOLUME 8.8 fl (7.5-11.1); RBC 4.07 M/mm3 (3.60-5.2); RDW 13.2 % (11.6-15.6); WHITE BLOOD COUNT 9.3 K/mm3 (4.0-10.0)
[2018-02-03 08:48] LABS: INR 1.11 (0.82-1.09); PROTHROMBIN TIME (PATIENT) 12.5 SEC (9.7-13.0)
[2018-02-03 09:02] LABS: ALBUMIN 2.7 g/dl (3.4-5.0); ANION GAP 8 (8-16); BLOOD UREA NITROGEN 4 mg/dL (7-18); CALCIUM 8.9 mg/dL (8.5-10.1); CHLORIDE 105 mmol/L (98-107); CO2 27 mmol/L (21-32); GLUCOSE,RANDOM 110 mg/dL (74-106); POTASSIUM 3.7 mmol/L (3.5-5.1); SODIUM 140 mmol/L (136-145)
[2018-02-03 09:06] LABS: ALK PHOS 161 U/L (45-117); BILIRUBIN,TOTAL 0.7 mg/dL (0.2-1.0); CREATININE 0.5 mg/dL (0.55-1.02); SGOT/AST 29 U/L (15-37); SGPT/ALT 33 U/L (12-78); TOT PROT 6.3 g/dl (6.4-8.2)
[2018-02-03] MEDS: D5-1/2NS+20 MEQ KCL - 20 MEQ/1,000 ML INFUS.BAG IV SCH ×2 (09:48→13:56)
[2018-02-03] MEDS: HEPARIN NA (PORCINE) 5,000 UNITS/ML 1ML VIAL SQ SCH ×2 (09:48→21:44)
[2018-02-03] MEDS ORDERED: ceFAZolin SODIUM 1 GM VIAL ONE (11:07)
[2018-02-03 11:34] LABS: PLATELET COUNT 218 K/MM3 (134-434); PLATELET ESTIMATE ADEQUATE
--- NOTE | 2018-02-03 11:46 | PROC ---
Endoscopy Procedure Endoscopy procedure completed. Please see scanned procedure report. s/p new PEG Please follow PEG orders.
--- NOTE | 2018-02-03 12:01 | PN ---
Progress Note (short form) - Note Progress Note: status post PEG today. comfortable No new issues Vital Signs Temp 97.4 F L 02/03/18 11:44 Pulse 89 02/03/18 11:44 Resp 22 02/03/18 11:44 BP 144/82 02/03/18 11:44 Pulse Ox 92 L 02/03/18 11:44 Intake & Output 02/02/18 02/03/18 02/03/18 23:59 11:59 23:59 Intake Total 996 300 Output Total 3 0 Balance 993 300 Weight 214 lb 207 lb 3.2 oz Intake: IV 996 300 D5-1/2NS+20 MEQ KCL - 20 996 meq In 1,000 ml @ 83 mls/ hr IV ASDIR LUIZ Rx#: [id number] Output: Urine 3 0 Void 3 0 Other: Voiding Method Incontinent Incontinent # Unmeasured Voids Void 1 Bowel Movement No No Height 5 ft 8 in Weight Measurement Method Patient Lift Scale Active Medications Heparin Sodium (Porcine) (Heparin -) 5,000 unit SQ BID [facility] Last Admin: 02/03/18 09:48 Dose: 5,000 unit Potassium Chloride/Dextrose/Sod Cl (D5-1/2ns+20 Meq Kcl -) 20 meq in 1,000 mls @ 83 mls/hr IV ASDIR LUIZ Last Admin: 02/03/18 09:48 Dose: 83 mls/hr CBC, BMP 02/03/18 08:20 02/03/18 08:20 Physical Examination Constitutional: Yes: No Distress, Calm Eyes: Yes: Conjunctiva Clear Neck: Yes: Supple Cardiovascular: Yes: Regular Rate and Rhythm Respiratory: Yes: CTA Bilaterally Gastrointestinal: Yes: Soft Edema: Yes Edema: RUE: 2+ Neurological: No: Alert (awake). Imaging - Results Chest X-ray: Report Reviewed EKG: Report Reviewed Assessment/Plan stable s/p peg continue present care dvt prophylaxis feeding/ medications via PEG--once cleared by GI will follow
[2018-02-04] MEDS: D5-1/2NS+20 MEQ KCL - 20 MEQ/1,000 ML INFUS.BAG IV SCH ×3 (01:15→17:46)
[2018-02-04] MEDS: HEPARIN NA (PORCINE) 5,000 UNITS/ML 1ML VIAL SQ SCH (09:41)
[2018-02-04 09:47] LABS: BASO % 0.6 % (0-2.0); EOS % 1.8 % (0-4.5); HEMATOCRIT 35.6 % (32.4-45.2); HEMOGLOBIN 12.4 GM/dL (10.7-15.3); LYMPH % 13.4 % (8-40); MCH 31.1 pg (25.7-33.7); MCHC 34.8 g/dl (32.0-36.0); MEAN CELL VOLUME 89.3 fl (80-96); MEAN PLT VOLUME 8.7 fl (7.5-11.1); MONO % 4.6 % (3.8-10.2); NEUT % 79.6 % (42.8-82.8); PLATELET COUNT 198 K/MM3 (134-434); RBC 3.99 M/mm3 (3.60-5.2)
--- NOTE | 2018-02-04 12:41 | PN ---
Progress Note, Physician Chief Complaint: no distress s/p peg - Current Medication List Current Medications: Active Medications Heparin Sodium (Porcine) (Heparin -) 5,000 unit SQ BID [facility] Last Admin: 02/04/18 09:41 Dose: 5,000 unit Potassium Chloride/Dextrose/Sod Cl (D5-1/2ns+20 Meq Kcl -) 20 meq in 1,000 mls @ 83 mls/hr IV ASDIR [facility] Last Admin: 02/04/18 01:15 Dose: 83 mls/hr - Objective Vital Signs: Vital Signs Temperature 97.6 F 02/04/18 08:36 Pulse Rate 76 02/04/18 08:36 Respiratory Rate 18 02/04/18 08:36 Blood Pressure 132/79 02/04/18 08:36 O2 Sat by Pulse Oximetry (%) 95 02/03/18 21:00 Constitutional: Yes: No Distress Cardiovascular: Yes: Regular Rate and Rhythm Respiratory: Yes: Diminished Gastrointestinal: Yes: Normal Bowel Sounds, Soft, Other (GT). No: Tenderness Extremities: Yes: Other (right arm-- midline-- arm slightly edematous) Edema: No Labs: CBC, BMP 02/04/18 09:10 02/03/18 08:20 INR, PTT INR 1.11 (0.82-1.09) 02/03/18 08:20 Problem List - Problems (1) Failure to thrive Code(s): [id number] - Qualifiers: Failure to thrive age range: in adult Qualified Code(s): R62.7 - Adult failure to thrive (2) Schizophrenia Code(s): F20.9 - SCHIZOPHRENIA, UNSPECIFIED (3) Swelling of upper arm Code(s): M79.89 - OTHER SPECIFIED SOFT TISSUE DISORDERS Assessment/Plan PLAN check sono of right arm-- portable GI follow up for starting feedings continue with iv fluids Heparin sc for DVT prophylaxis
--- NOTE | 2018-02-04 14:05 | PN ---
Progress Note (short form) - Note Progress Note: No events overnight. PEG site intact. No bleeding, discharge. Okay to use PEG as intended. Please refer to [facility] orders. Nutritional consult requested Problem List - Problems (1) Failure to thrive Code(s): [id number] - Qualifiers: Failure to thrive age range: in adult Qualified Code(s): R62.7 - Adult failure to thrive
[2018-02-04] MEDS: ALBUTEROL SO4 0.083% IH SOL 2.5 MG/3 ML VIAL.NEB. NEB SCH ×2 (19:21→20:06)
[2018-02-04] MEDS ORDERED: PT OWN MED DRAWER 7, Y5N ONE (21:31)
[2018-02-04] MEDS: HALOPERIDOL 5 MG TABLET (FP) GT SCH (21:48)
[2018-02-04] MEDS: ENOXAPARIN NA (PORCINE) 100 MG/1 ML DISP.SYRIN SQ SCH (21:48)
[2018-02-04] MEDS ORDERED: PATIENT'S OWN MEDICATION (NON-FORMULARY) (Gabapentin [Gralise] 600 MG) PEG SCH (22:00)
[2018-02-04] MEDS ORDERED: QUEtiapine FUMARATE 200 MG TABLET GT SCH (22:00)
[2018-02-04] MEDS ORDERED: ATORVASTATIN CA 10 MG TABLET (FP) PEG SCH (22:00)
[2018-02-05] MEDS ORDERED: LEVOTHYROXINE NA 50 MCG TABLET (FP) GT SCH (07:00)
[2018-02-05] MEDS: ALBUTEROL SO4 0.083% IH SOL 2.5 MG/3 ML VIAL.NEB. NEB SCH ×3 (08:19→16:04)
[2018-02-05] MEDS: HALOPERIDOL 5 MG TABLET (FP) GT SCH (09:41)
[2018-02-05] MEDS: D5-1/2NS+20 MEQ KCL - 20 MEQ/1,000 ML INFUS.BAG IV SCH (09:42)
[2018-02-05] MEDS: ENOXAPARIN NA (PORCINE) 100 MG/1 ML DISP.SYRIN SQ SCH (09:42)
[2018-02-05] MEDS ORDERED: clonazePAM 0.5 MG TABLET GT SCH (10:00)
[2018-02-05] MEDS ORDERED: ASPIRIN 81 MG CHEWABLE TABLETS GT SCH (10:00)
--- NOTE | 2018-02-05 13:21 | DS ---
Physical Examination Vital Signs: Vital Signs Temperature 97.4 F L 02/05/18 10:00 Pulse Rate 68 02/05/18 10:00 Respiratory Rate 18 02/05/18 10:00 Blood Pressure 129/69 02/05/18 10:00 O2 Sat by Pulse Oximetry (%) 95 02/04/18 21:00 Constitutional: Yes: No Distress, Calm Cardiovascular: Yes: Regular Rate and Rhythm Respiratory: Yes: CTA Bilaterally Gastrointestinal: Yes: Normal Bowel Sounds, Soft Edema: Yes Edema: RUE: 1+ Labs: CBC, BMP 02/04/18 09:10 02/03/18 08:20 Discharge Summary Reason For Visit: FAILURE TO THRIVE,SCHIZOPHRENIA Current Active Problems Failure to thrive (Acute) Schizophrenia (Acute) Swelling of upper arm (Acute) Hospital Course: Pt admitted for poor oral intake, peg placed on 02/03-- feeds started-- she ios tolerating Also developed DVT right arm-- started Lovenox-- now on Eliquis Midline catheter removed stable for dc to [facility] Condition: Improved - Instructions Referrals: Michaelle Lyons MD [Primary Care Provider] - [facility] - Home Medications Comprehensive Discharge Medication List: Ambulatory Orders Acetaminophen [Tylenol] 650 mg PO QID PRN 01/31/18 Albuterol 0.083% Nebulizer Janet [Ventolin 0.083% Nebulizer Soln -] 2.5 mg IN QID 01/31/18 Aspirin [ASA -] 81 mg PO DAILY 01/31/18 Divalproex *ER* [Depakote *ER* -] 1,000 mg PO HS 01/31/18 Divalproex *ER* [Depakote *ER* -] 500 mg PO DAILY 01/31/18 Divalproex [Depakote -] 125 mg PO DAILY 01/31/18 Docusate Sodium [Colace] 200 mg PO HS 01/31/18 Gabapentin [Gralise] 600 mg PO BID 01/31/18 Haloperidol [Haldol -] 5 mg PO BID 01/31/18 Haloperidol [Haldol -] 10 mg PO HS 01/31/18 Levothyroxine [Synthroid -] 50 mcg PO DAILY 01/31/18 Magnesium Hydrox 2400MG/30Ml [Milk of Magnesia -] 30 ml PO Q8H PRN 01/31/18 Multivitamin with Iron [Animal Shapes Plus Iron] 1 each PO DAILY 01/31/18 Polyethylene Glycol 3350 [Clearlax] 17 gm PO DAILY 01/31/18 Quetiapine Fumarate [Seroquel -] 200 mg PO BID 01/31/18 Quetiapine Fumarate [Seroquel -] 200 mg PO HS 01/31/18 Sennosides [Senna] 8.6 mg PO HS PRN 01/31/18 Simvastatin 10 mg PO HS 01/31/18 Sodium Phosphate/Na Biphos [Fleet Adult Rectal Enema -] 133 ml RC DAILY PRN Trazodone HCl 100 mg PO HS 01/31/18 clonazePAM [Klonopin -] 0.5 mg PO DAILY 01/31/18 Apixaban [Eliquis -] 10 mg PO BID #14 tablet 02/05/18 Apixaban [Eliquis] 5 mg PO BID #60 tablet 02/05/18
[2018-02-05 18:28] VITALS: BP 122/68; PULSE 71; TEMP 97.3
[2018-02-05] MEDS ORDERED: APIXABAN 5 MG TABLET PO SCH (22:00)
== END 2018-02-05 19:25 | DRG 641 ==
LOC: JER 09:23 → JERBED 11:34 → J5S 13:38 → OBSVTOIN 02-04 11:46
PROVIDERS: ADMIT Internal Medicine; ATTEND Internal Medicine
PROC: 0DH63UZ Insertion of Feeding Device into Stomach, Percutaneous Approach (ICD-10-PCS; principal; 2018-02-03 14:30)
DX: R62.7 Adult failure to thrive (principal); I82.621 Acute embolism and thrombosis of deep veins of right upper extremity; F20.9 Schizophrenia, unspecified; M79.89 Other specified soft tissue disorders; E03.9 Hypothyroidism, unspecified; F31.9 Bipolar disorder, unspecified; E78.5 Hyperlipidemia, unspecified; F03.90 Unspecified dementia, unspecified severity, without behavioral disturbance, psychotic disturbance, mood disturbance, and anxiety
CPT/HCPCS: 36415; 71045-TC-FY; 80053; 81003; 81015; 84443; 85025; 85610; 85730; 86850; 86900; 86901; 87077; 87086; 93005; 93010; 93971; 94640; 99282-25; G0378; J1644